=== PATIENT | male | born 1980 | race Caucasian/White ===

== ENCOUNTER 2017-04-20 19:50 | Emergency (ER) | payer SELFPAY ==
[~2017-04-20] VITALS: Ht 190.5 cm; Wt 125.0 kg
[2017-04-20 19:53] VITALS: BP 189/100; PULSE 98; RESP 16; TEMP 99.7; O2SAT 98
--- NOTE | 2017-04-22 10:34 | PD ---
Physical Exam Date Seen by Provider: Apr 20, 2017 Time Seen by Provider: 19:55 Narrative 37-year-old male presents to the emergency department for evaluation of a red painful area to his chin that started today. He states he has had the same issue recently to his palms, feet and the rash will go away on its own. He also states he is having left-sided abdominal pain for 1 year. Current pain is 0/10. Data Data Last Documented VS Vital Signs Date Time Temp Pulse Resp B/P (MAP) Pulse Ox O2 Delivery O2 Flow Rate FiO2 04/20/17 19:53 99.7 98 16 189/100 (129) 98 MDM Supervised Visit with TODD: No Narrative Course 37-year-old male presents to the emergency department for evaluation of a skin rash to his chin as well as chronic left-sided abdominal pain. Patient is initially seen in triage. He left AGAINST MEDICAL ADVICE before he could be moved to medical bed. Diagnosis Primary Impression: Left against medical advice Patient Instructions: General Instructions Departure Forms: Tests/Procedures Disposition: 07 AGAINST MEDICAL ADVICE Lara Carpenter Apr 22, 2017 10:34
== END 2017-04-21 00:20 | disposition left against medical advice (07) ==
LOC: NED 19:50
DX: R21 Rash and other nonspecific skin eruption (principal)
CPT/HCPCS: 99281